=== PATIENT | female | born 1990 | race Two or more races ===

== ENCOUNTER 2017-01-21 07:16 | Emergency (ER) | payer OTHER ==
[2017-01-21] MEDS ORDERED: ONDANSETRON 4 MG/2 ML VIAL IVP STA (07:45)
[2017-01-21] MEDS ORDERED: SODIUM CHLORIDE 0.9% 1,000 ML IV ONE (07:45)
[2017-01-21] MEDS ORDERED: HYDROmorphone 1 MG/ML SYRINGE IVP STA ×3 (07:45→10:01)
[2017-01-21] MEDS ORDERED: MAG HYDROX/AL HYDROX/SIMETH 30 ML UDC PO STA (07:46)
[2017-01-21] MEDS ORDERED: LIDOCAINE VISCOUS 2% 15 ML UDC MM STA (07:46)
[2017-01-21] MEDS ORDERED: MAG HYDROX/AL HYDROX/SIMETH 30 ML UDC ONE (07:57)
[2017-01-21] MEDS ORDERED: LIDOCAINE VISCOUS 2% 15 ML UDC MM ONE (07:57)
[2017-01-21] MEDS ORDERED: HYDROmorphone 1 MG/ML SYRINGE ONE ×4 (08:23→10:45)
[2017-01-21] MEDS ORDERED: ONDANSETRON 4 MG/2 ML VIAL ONE (08:23)
[2017-01-21] MEDS ORDERED: FAMOTIDINE 20 MG/50 ML 50 ML IV ONE ×2 (09:16→09:25)
[2017-01-21] MEDS ORDERED: SUCRALFATE 1 GM/10 ML UDC PO STA (09:16)
[2017-01-21] MEDS ORDERED: ACETAMINOPHEN 1,000 MG/100 ML 100 ML IV STA (09:17)
[2017-01-21] MEDS ORDERED: SUCRALFATE 1 GM/10 ML UDC ONE ×2 (09:27→09:42)
[2017-01-21] MEDS ORDERED: ACETAMINOPHEN 1,000 MG/100 ML 100 ML IV ONE (09:27)
== END 2017-01-21 11:56 | disposition home or self-care (01) ==
DX: R10.13 Epigastric pain (principal); K29.70 Gastritis, unspecified, without bleeding
CPT/HCPCS: 36415; 80053; 83690; 85025; 87339; 96374; 96375; 96376; 99283; 99284; A9270; J0131; J1170

== ENCOUNTER 2018-02-03 08:26 | Outpatient (CLI) | payer OTHER | END 2018-02-03 08:27 | disposition critical access hospital (66) | LOC: EMS 08:26 | PROVIDERS: ATTEND Surgery | DX: R07.9 Chest pain, unspecified (principal); R42 Dizziness and giddiness; R53.1 Weakness | CPT/HCPCS: A0425; A0427 ==

== ENCOUNTER 2018-02-03 08:49 | Emergency (ER) | payer OTHER ==
[2018-02-03] MEDS ORDERED: DEXAMETHASONE 10 MG/ML VIAL IVP STA (10:12)
[2018-02-03] MEDS ORDERED: SODIUM CHLORIDE 0.9% 1,000 ML IV ONE (10:12)
[2018-02-03] MEDS ORDERED: LIDOCAINE VISCOUS 2% 15 ML UDC MM STA (10:13)
[2018-02-03] MEDS ORDERED: MAG HYDROX/AL HYDROX/SIMETH 30 ML UDC PO STA (10:13)
--- NOTE | 2018-02-03 10:15 | ED Physician Documentation ---
History of Present Illness - Stated complaint Stated Complaint: NEAR SYNCOPE - Chief complaint Chief Complaint: Neuro - History obtained from History obtained from: Patient, Family - Additonal information Additional information: 27-year-old female has developed some substernal chest pain and has been diagnosed with costochondritis. She has been placed on some Mobic and she continues to have symptoms and she has some symptoms of burning in her chest as well. It appears separate from her chest pain. She has been taking ibuprofen 400 mg every 4 hours. She has been taking this on top of the Mobic. She states that the pain is bad enough in her chest wall that she is not able to take a full deep breath. She does not have signs or symptoms of upper respiratory tract infection she denies any sputum production and she denies any cough.She did not feel well yesterday and vomited she vomited the day prior as well. She feels lightheaded and dizzy today. Review of Systems Constitutional: denies: Fever, Chills, Myalgias Eyes: denies: Decreased vision Ears: denies: Ear pain Nose: denies: Rhinorrhea / runny nose, Congestion Throat: denies: Sore throat Cardiac: reports: Chest pain / pressure. denies: Palpitations, Pedal edema, Calf pain Respiratory: reports: Dyspnea. denies: Cough, Wheezing GI: reports: Abdominal Pain, Nausea, Vomiting : denies: Dysuria, Frequency Skin: denies: Rash Musculoskeletal: denies: Neck pain, Back pain, Extremity pain Neurologic: reports: Generalized weakness, Near syncope. 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 - Present Medications Home Medications: Ambulatory Orders Medication Instructions Recorded Confirmed Famotidine 20 mg PO DAILY #30 tablet 01/21/17 Ondansetron Odt [Zofran] 4 mg TL Q6H PRN #15 tablet 01/21/17 Oxycodone HCl/Acetaminophen 1 each PO Q6H PRN #20 tablet 01/21/17 [Percocet 5-325 mg Tablet] Sucralfate 1 gm PO QID #40 tablet 01/21/17 Sucralfate [Carafate] 1 gm PO ACHS #30 tablet 02/03/18 Tramadol HCl 50 - 100 mg PO Q6HR PRN #20 tablet 02/03/18 - Allergies Allergies/Adverse Reactions: Allergies Allergy/AdvReac Type Severity Reaction Status Date / Time No Known Drug Allergies Allergy Verified 01/21/17 07:20 - Social History Does the pt smoke?: No Smoking Status: Never smoker Does the pt drink ETOH?: No Does the pt have substance abuse?: No - Immunizations Immunizations are current?: Yes - POLST Patient has POLST: No PD ED PE NORMAL - Vitals Vital signs reviewed: Yes (tachpneic and hypertensive) - General General: Alert and oriented X 3, No acute distress, Well developed/nourished - HEENT HEENT: Atraumatic, PERRL, EOMI - Neck Neck: Supple, no meningeal sign, No bony TTP - Cardiac Cardiac: RRR, No murmur, No gallop - Respiratory Respiratory: No respiratory distress, Clear bilaterally, Other (diminished breath sounds. There is central point tenderness to the anterior chest over the distal sternum. ) - Abdomen Abdomen: Soft, Non tender - Back Back: No CVA TTP, No spinal TTP - Derm Derm: Normal color, Warm and dry, No rash - Extremities Extremities: No deformity, No edema - Neuro Neuro: No motor deficit, No sensory deficit Eye Opening: Spontaneous Motor: Obeys Commands Verbal: Oriented GCS Score: 15 - Psych Psych: Normal mood, Normal affect Results - Vitals Vitals: Vital Signs - 24 hr 02/03/18 02/03/18 02/03/18 08:56 12:41 13:07 Temperature 36.6 C 36.6 C Heart Rate 78 74 83 Respiratory 28 H 18 18 Rate Blood Pressure 146/92 H 116/70 O2 Saturation 100 100 Oxygen O2 Source Room air - EKG (time done) 0855 Rate: Rate (enter#) (71) Rhythm: NSR QRS: Low voltage Ischemia: Normal ST segments Compare to prior EKG: Old EKG unavailable Computer interpretation: Agree with computer - Labs Labs: Laboratory Tests 02/03/18 02/03/18 02/03/18 10:44 10:44 10:44 WBC 6.0 RBC 4.30 Hgb 9.2 L Hct 29.2 L MCV 68.0 L MCH 21.5 L MCHC 31.6 L RDW 16.9 H Plt Count 417 MPV 7.7 L Neut # 4.0 Lymph # 1.4 L Bell # 0.4 Eos # 0.2 Baso # 0.1 Absolute Nucleated RBC 0.00 Nucleated RBC % 0.0 Sodium 136 Potassium 3.7 Chloride 107 Carbon Dioxide 21 Anion Gap 8.0 BUN 9 Creatinine 0.6 Estimated GFR (MDRD) 120 Glucose 99 Calcium 8.5 Total Bilirubin 0.3 AST 16 ALT 16 Alkaline Phosphatase 28 L Troponin I < 0.04 Total Protein 7.6 Albumin 3.8 Globulin 3.8 Albumin/Globulin Ratio 1.0 Lipase 17 L Urine Color Urine Clarity Urine pH Ur Specific [place] Urine Protein Urine Glucose (UA) Urine Ketones Urine Occult Blood Urine Nitrite Urine Bilirubin Urine Urobilinogen Ur Leukocyte Esterase Urine RBC Urine WBC Ur Squamous Epith Cells Urine Bacteria Ur Microscopic Review Urine Culture Comments Urine HCG, Qual 02/03/18 02/03/18 11:30 11:30 WBC RBC Hgb Hct MCV MCH MCHC RDW Plt Count MPV Neut # Lymph # Bell # Eos # Baso # Absolute Nucleated RBC Nucleated RBC % Sodium Potassium Chloride Carbon Dioxide Anion Gap BUN Creatinine Estimated GFR (MDRD) Glucose Calcium Total Bilirubin AST ALT Alkaline Phosphatase Troponin I Total Protein Albumin Globulin Albumin/Globulin Ratio Lipase Urine Color LIGHT YELLOW Urine Clarity HAZY Urine pH 6.0 Ur Specific [place] 1.010 1.010 Urine Protein NEGATIVE Urine Glucose (UA) NEGATIVE Urine Ketones TRACE Urine Occult Blood LARGE H Urine Nitrite NEGATIVE Urine Bilirubin NEGATIVE Urine Urobilinogen 0.2 (NORMAL) Ur Leukocyte Esterase NEGATIVE Urine RBC 0-5 Urine WBC 0-3 Ur Squamous Epith Cells MOD Squamous H Urine Bacteria Few Ur Microscopic Review INDICATED Urine Culture Comments NOT INDICATED Urine HCG, Qual NEGATIVE - Rads (name of study) 2 veiw chest Radiology: Prelim report reviewed (Impression: No focal consolidation), EMP read indepedently, See rad report Procedures - IVC sono (time) 1010 Bedside IVC sono: IVC measures (cm) (1.12), IVC collapsed c insp (cm) (complete) , Dehydration (est 1 liter deficit) PD MEDICAL DECISION MAKING - ED course Complexity details: reviewed results, re-evaluated patient, considered differential, d/w patient, d/w family ED course: 27-year-old female is been having some pain in her sternum for about 3 weeks now and she has been taking some ibuprofen on a regular basis. She has developed some burning sensation in her chest as well. This burning sensation was improved temporarily with use of a GI cocktail. I suspect this is related to her use of ibuprofen and Mobic. In addition she does have the costochondritis and she is moving air poorly. I had her get a nebulizer treatment with concern of subclinical asthma and this did not seem to provide much relief as far as ease of breathing for the patient. With this I concluded that reactive airway disease was not her underlying problem. I have asked her to follow-up with her primary care doctor about her costochondritis symptoms. And I have asked her to stop taking her ibuprofen and we will put her on some Carafate and an acid reducing medication. I will provide some temporary pain medication for the patient for her costochondritis. Departure - Departure Disposition: Home, Self Care Clinical Impression: Costochondritis Gastritis Qualifiers: Gastritis type: unspecified gastritis Chronicity: acute Gastritis bleeding: without bleeding Qualified Code(s): K29.00 - Acute gastritis without bleeding Condition: Stable Instructions: ED Chest Pain Costochondritis, ED PUD Vs Gastritis Follow-Up: [facility] [Provider Group] Prescriptions: Tramadol HCl 50 - 100 mg PO Q6HR PRN #20 tablet PRN Reason: Pain Sucralfate [Carafate] 1 gm PO ACHS #30 tablet Comments: Today it appears to have 2 things going on. One is irritation of your esophagus and stomach from the ibuprofen. Stop taking the ibuprofen and the Mobic and take some Carafate as prescribed half hour before eating and at bedtime and in addition take the Pepcid AC or Nexium on a regular basis. For the pain of the costochondritis I prescribed some tramadol. Forms: Activity restrictions
--- NOTE | 2018-02-03 10:47 | XRAY Report ---
EXAM: CHEST RADIOGRAPHY EXAM DATE: 02/03/2018 10:24 AM. CLINICAL HISTORY: Central pain decreased air movement. COMPARISON: Chest radiograph dated 09/14/2016. TECHNIQUE: 2 views. FINDINGS: Lungs/Pleura: No focal opacities evident. No pleural effusion. No pneumothorax. Normal volumes. Mediastinum: Heart and mediastinal contours are unremarkable. Other: None. IMPRESSION: No focal consolidation. [facility] Referring Provider Line: [phone] SITE ID: [id number]
[2018-02-03 10:58] LABS: BASOPHILS # (AUTO) 0.1 10^3/uL (0.0-0.1); BASOPHILS % (AUTO) 1.4 %; EOSINOPHILS # (AUTO) 0.2 10^3/uL (0.0-0.7); EOSINOPHILS % (AUTO) 2.7 %; HGB - HEMOGLOBIN 9.2 g/dL (12.0-16.0); LYMPHOCYTES # (AUTO) 1.4 10^3/uL (1.5-3.5); LYMPHOCYTES % (AUTO) 23.5 %; MEAN CORPUSCULAR HEMOGLOBIN 21.5 pg (27.0-31.0); MEAN CORPUSCULAR HGB CONC 31.6 g/dL (32.0-36.0); MEAN PLATELET VOLUME 7.7 fL (7.9-10.8); MONOCYTES # (AUTO) 0.4 10^3/uL (0.0-1.0); MONOCYTES % (AUTO) 6.3 %; NEUTROPHILS % (AUTO) 66.1 %; PLT - PLATELET COUNT 417 10^3/uL (130-450); RED CELL DISTRIBUTION WIDTH 16.9 % (12.0-15.0)
[2018-02-03 11:12] LABS: ALBUMIN 3.8 g/dL (3.2-5.5); BILIRUBIN,TOTAL 0.3 mg/dL (0.2-1.0); CALCIUM 8.5 mg/dL (8.5-10.3); CREATININE 0.6 mg/dL (0.4-1.0); TOTAL PROTEIN 7.6 g/dL (6.7-8.2)
[2018-02-03 11:56] LABS: BILIRUBIN,URINE NEGATIVE (NEGATIVE); GLUCOSE, URINE (UA) NEGATIVE (NEGATIVE); KETONES,URINE (UA) TRACE mg/dL (NEGATIVE); LEUKOCYTE ESTERASE, URINE NEGATIVE (NEGATIVE); NITRITE,URINE NEGATIVE (NEGATIVE); OCCULT BLOOD,URINE LARGE (NEGATIVE); PROTEIN,URINE NEGATIVE (NEGATIVE); UROBILINOGEN,URINE 0.2 (NORMAL) E.U./dL (NORMAL)
[2018-02-03 11:59] LABS: CLARITY,URINE HAZY (CLEAR)
[2018-02-03 12:06] LABS: BACTERIA,URINE Few /HPF (None Seen); RBC,URINE 0-5 /HPF (0-5); SQUAMOUS EPITHELIAL CELL,UR MOD Squamous (<= Few)
[2018-02-03] MEDS ORDERED: IPRATROPIUM/ALBUTEROL 3 ML NEB INH STA (12:27)
[2018-02-03 12:30] LABS: HCG UR QUAL NEGATIVE
[2018-02-03 13:08] VITALS: BP 116/70
== END 2018-02-03 13:34 | disposition home or self-care (01) ==
LOC: EDUNIT# → ED 08:49
DX: M94.0 Chondrocostal junction syndrome [Tietze] (principal); K29.00 Acute gastritis without bleeding
CPT/HCPCS: 36415; 71046; 80053; 81001; 81025; 83690; 84484; 85025; 93005; 94640; 96361; 96374; 99284; A9270; 81003; 87086

== ENCOUNTER 2019-01-15 12:41 | Emergency (ER) | payer OTHER ==
[2019-01-15 13:01] VITALS: BP 139/84
--- NOTE | 2019-01-15 13:37 | ED Physician Documentation ---
PD HPI URI - Stated complaint Stated Complaint: R EAR PX - Chief complaint Chief Complaint: Heent - History obtained from History obtained from: Patient - History of Present Illness Timing - onset: How many days ago (2) Timing duration: Days (2) Timing details: Gradual onset, Still present Associated symptoms: Ear pain. No: Fever, Nasal congestion, Dry cough Contributing factors: No: Sick contact Similar symptoms before: Has not had sx before Recently seen: Not recently seen Review of Systems Constitutional: reports: Fever Ears: reports: Ear pain. denies: Drainage/discharge Nose: reports: Sinus pressure / pain. 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 - Present Medications Home Medications: Ambulatory Orders Medication Instructions Recorded Confirmed Ondansetron Odt [Zofran] 4 mg TL Q6H PRN #15 tablet 01/21/17 Oxycodone HCl/Acetaminophen 1 each PO Q6H PRN #20 tablet 01/21/17 [Percocet 5-325 mg Tablet] RX: Famotidine 20 mg PO DAILY #30 tablet 01/21/17 RX: Sucralfate 1 gm PO QID #40 tablet 01/21/17 RX: Tramadol HCl 50 - 100 mg PO Q6HR PRN #20 tablet 02/03/18 Sucralfate [Carafate] 1 gm PO ACHS #30 tablet 02/03/18 Ciproflox/Dexameth Otic Drops 4 drops OT BID #1 bottle 01/15/19 [Ciprodex] RX: Doxycycline Hyclate 100 mg PO BID #12 capsule 01/15/19 RX: Naproxen 375 mg PO BID #20 tablet 01/15/19 - Allergies Allergies/Adverse Reactions: Allergies Allergy/AdvReac Type Severity Reaction Status Date / Time No Known Drug Allergies Allergy Verified 01/21/17 07:20 - Social History Does the pt smoke?: No Smoking Status: Never smoker Does the pt drink ETOH?: No Does the pt have substance abuse?: No - Immunizations Immunizations are current?: Yes - POLST Patient has POLST: No PD ED PE NORMAL - Vitals Vital signs reviewed: Yes - General General: Alert and oriented X 3, No acute distress, Well developed/nourished - HEENT HEENT: Pharynx benign. No: Ears normal (left is okay. right with normal TM; the canal is red with swelling. No focal lesion seen. There is some mild exudate in the mid portion of the canal. ) - Neck Neck: Supple, no meningeal sign, No adenopathy - Cardiac Cardiac: RRR, No murmur - Respiratory Respiratory: Clear bilaterally - Neuro Neuro: Alert and oriented X 3, No motor deficit, Normal speech Results - Vitals Vitals: Oxygen O2 Source Room air PD MEDICAL DECISION MAKING - ED course Complexity details: considered differential (the canal is red with inflammation; TM not involved. There is redness and swelling of the canal though c/w some cellultitic involvement. ), d/w patient Departure - Departure Disposition: 01 Home, Self Care Clinical Impression: Cellulitis of right ear canal Otitis externa Qualifiers: Otitis externa type: unspecified type Chronicity: acute Laterality: right Qualified Code(s): H60.501 - Unspecified acute noninfective otitis externa, right ear Condition: Stable Record reviewed to determine appropriate education?: Yes Follow-Up: [facility] [Provider Group] Prescriptions: Ciproflox/Dexameth Otic Drops [Ciprodex] 4 drops OT BID #1 bottle RX: Doxycycline Hyclate 100 mg PO BID #12 capsule RX: Naproxen 375 mg PO BID #20 tablet Comments: Use the Ciprodex eardrops in the right ear as directed. There does not appear to be an infection more of the tissue in the ear canal and the eardrum as well so we will add an oral antibiotic as well. Naproxen or ibuprofen as needed for pains. Add Tylenol if needed. Recheck if not improving over the next several days. Discharge Date/Time: 01/15/19 14:00
== END 2019-01-15 14:00 | disposition home or self-care (01) ==
LOC: ED 12:41
DX: H60.11 Cellulitis of right external ear (principal)
CPT/HCPCS: 99283

== ENCOUNTER 2019-01-30 21:29 | Emergency (ER) | payer OTHER ==
--- NOTE | 2019-01-30 22:21 | ED Physician Documentation ---
PD HPI HEADACHE - Stated complaint Stated Complaint: HEADACHE - Chief complaint Chief Complaint: Neuro - History obtained from History obtained from: Patient - History of Present Illness Timing - onset: How many days ago (3) Timing - onset during: Light activity Timing - duration: Days (3) Timing - details: Gradual onset, Still present Worst headache ever?: No: Worst headache ever? Location: Back, Right, Left Quality: Aching (feeling stiff and tender at upper neck both sides, and is tender to palpation in those spots.) Associated symptoms: No: Fever, Stiff neck Improved by: Rest (not moving head). No: Dark room Worsened by: Moving (turning and flex/ext of neck has pain at the upper neck.) Contributing factors: No: Recent illness Similar symptoms before: Has not had sx before (has had migraines but not this type of pain at the muscle/base of head.) Review of Systems Constitutional: denies: Fever, Chills, Myalgias Eyes: denies: Loss of vision, Decreased vision Throat: denies: Sore throat Respiratory: denies: Cough Neurologic: reports: Headache. 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 - Present Medications Home Medications: Ambulatory Orders Medication Instructions Recorded Confirmed Famotidine 20 mg PO DAILY #30 tablet 01/21/17 Ondansetron Odt [Zofran] 4 mg TL Q6H PRN #15 tablet 01/21/17 Oxycodone HCl/Acetaminophen 1 each PO Q6H PRN #20 tablet 01/21/17 [Percocet 5-325 mg Tablet] Sucralfate 1 gm PO QID #40 tablet 01/21/17 Sucralfate [Carafate] 1 gm PO ACHS #30 tablet 02/03/18 Tramadol HCl 50 - 100 mg PO Q6HR PRN #20 tablet 02/03/18 Ciproflox/Dexameth Otic Drops 4 drops OT BID #1 bottle 01/15/19 [Ciprodex] Doxycycline Hyclate 100 mg PO BID #12 capsule 01/15/19 Naproxen 375 mg PO BID #20 tablet 01/15/19 Hydrocodone/Acetaminophen [Stewart 1 each PO Q6H PRN #15 tablet 01/30/19 5-325 Tablet] Naproxen 500 mg PO BID #20 tablet 01/30/19 - Allergies Allergies/Adverse Reactions: Allergies Allergy/AdvReac Type Severity Reaction Status Date / Time No Known Drug Allergies Allergy Verified 01/30/19 21:32 - Social History Does the pt smoke?: No Smoking Status: Never smoker Does the pt drink ETOH?: No Does the pt have substance abuse?: No - Immunizations Immunizations are current?: Yes - POLST Patient has POLST: No PD ED PE NORMAL - Vitals Vital signs reviewed: Yes - General General: Alert and oriented X 3, No acute distress, Well developed/nourished - HEENT HEENT: PERRL, EOMI, Ears normal, Pharynx benign - Neck Neck: Supple, no meningeal sign, No bony TTP, No adenopathy, Other (has focal tenderness at occipital ridge both sides at the trapezius insertion area. Palpation in those spots causes the pain she has been having. ) Results - Vitals Vitals: Oxygen O2 Source Room air PD MEDICAL DECISION MAKING - ED course Complexity details: re-evaluated patient (trigger point injection at trapezius insertion sites both sides with Marcaine and Kenalog without problems. ), considered differential, d/w patient Departure - Departure Disposition: 01 Home, Self Care Clinical Impression: Trapezius muscle strain Qualifiers: Encounter type: initial encounter Laterality: unspecified laterality Qualified Code(s): S46.819A - Strain of other muscles, fascia and tendons at shoulder and upper arm level, unspecified arm, initial encounter Condition: Stable Record reviewed to determine appropriate education?: Yes Instructions: ED Headache Tension Prescriptions: Hydrocodone/Acetaminophen [Stewart 5-325 Tablet] 1 each PO Q6H PRN #15 tablet PRN Reason: Pain Naproxen 500 mg PO BID #20 tablet Comments: This seems like muscular neck pain/headache with the tenderness at the insertion point of the upper neck muscles. Heat and gentle stretching for the neck. I did do a injection at that site with some steroid anti-inflammatory and numbing medicine hopefully this will improve it into tomorrow. Add Tylenol or ibuprofen or Aleve if needed for pains. Continue with some naproxen twice daily for the next several days to a week. Add Tylenol or hydrocodone if needed for consistent pain. Recheck with your primary though if this is not better over the next couple of days. Discharge Date/Time: 01/30/19 23:15
[2019-01-30] MEDS ORDERED: HYDROcod/ACETAM 5/325 MG TABLET PO STA (22:40)
[2019-01-30] MEDS ORDERED: TRIAMCINOLONE 40 MG/ML VIAL IM STA (22:40)
[2019-01-30 23:15] VITALS: BP 144/77
== END 2019-01-30 23:15 | disposition home or self-care (01) ==
LOC: ED 21:29
DX: S46.812A Strain of other muscles, fascia and tendons at shoulder and upper arm level, left arm, initial encounter (principal); S46.811A Strain of other muscles, fascia and tendons at shoulder and upper arm level, right arm, initial encounter
CPT/HCPCS: 99283; A9270